=== PATIENT | female | born 1985 | race Caucasian/White ===

== ENCOUNTER 2019-04-10 12:33 | Outpatient (CLI) | payer BC ==
--- NOTE | 2019-04-10 15:54 | RAD ---
RADIOGRAPH RIGHT FOOT 3 VIEWS: 04/10/19 HISTORY: 33-year-old female with enthesopathy of right foot. Pain. FINDINGS: No enthesophyte is visualized. Joint spaces are maintained without erosions or osteophytes. No fract ure, periostitis, permeative lesion, osteolytic lesion, or osteoblastic lesion. No soft tissue calcif ications. IMPRESSION: Normal. POS: H
== END 2019-04-10 12:34 | disposition home or self-care (01) ==
LOC: BICRAD 12:33
PROVIDERS: ATTEND Podiatrist
DX: M77.9 Enthesopathy, unspecified (principal); M79.671 Pain in right foot

== ENCOUNTER 2023-08-21 11:24 | Outpatient (CLI) | payer BC | END 2023-08-21 11:25 | disposition home or self-care (01) | LOC: BICRAD 11:24 | PROVIDERS: ATTEND Nurse Practitioner Family | DX: M53.3 Sacrococcygeal disorders, not elsewhere classified (principal); M41.35 Thoracogenic scoliosis, thoracolumbar region | CPT/HCPCS: 72100; 72220 ==

== ENCOUNTER 2024-01-30 08:35 | Outpatient (CLI) | payer BC | END 2024-01-30 08:36 | disposition home or self-care (01) | LOC: BICULT 08:35 | PROVIDERS: ATTEND Internal Medicine | DX: R94.5 Abnormal results of liver function studies (principal); K76.0 Fatty (change of) liver, not elsewhere classified | CPT/HCPCS: 76700 ==